=== PATIENT | female | born 1965 | race Caucasian/White ===

== ENCOUNTER 2021-12-06 08:56 | Outpatient (CLI) | payer OTHER ==
[2021-12-06] MEDS ORDERED: Magnevist 469MG/ML 20 ML VIAL ONE (14:59)
== END 2021-12-06 08:57 | disposition home or self-care (01) ==
LOC: CSHMRI 08:56
PROVIDERS: ATTEND Psychiatry & Neurology Neurology
DX: G35 Multiple sclerosis (principal); M47.814 Spondylosis without myelopathy or radiculopathy, thoracic region; M47.812 Spondylosis without myelopathy or radiculopathy, cervical region; R90.89 Other abnormal findings on diagnostic imaging of central nervous system
CPT/HCPCS: 70553; 72156; 72157; 82565; A9579